=== PATIENT | female | born 1965 | race Caucasian/White ===

== ENCOUNTER 2017-08-30 14:22 | Emergency (ER) | payer OTHER ==
[2017-08-30 14:25] VITALS: BP 158/99
--- NOTE | 2017-08-30 15:00 | PHYS DOC ---
Adult General Chief Complaint Chief Complaint: PAIN ON URINATION HPI HPI Patient is a 52-year-old female who presents with UTI symptoms, sent from the [facility]. The patient was seen about a week ago with UTI symptoms at the [facility], urinalysis was positive for nitrites and leukocyte Estrace, she was treated with Macrobid. Her symptoms have not improved. Actually she states the burning did improve but the frequency did not. She still has some pressure in her lower abdomen. She denies fever but has been nauseated off and on for 3 weeks. She has some pain in her low back that she had attributed to possible musculoskeletal. Patient has not had chronic UTIs. The urine was not cultured from the [facility]. They did not do a microscopic exam, just a dip. PCP Dr. Barron Review of Systems Review of Systems Constitutional: Denies fever or chills [] GI: Nausea but no vomiting. Also notes that when they pressed on her stomach at [facility], it was tender in the midline lower stomach : As in history of present illness Musculoskeletal: She has had midline low back pain but not in the CVA area Physical Exam Physical Exam Constitutional: Well developed, well nourished, no acute distress, non-toxic appearance. Afebrile, alert, mentating normally. HENT: Normocephalic, atraumatic, bilateral external ears normal, nose normal. [] Eyes: conjunctiva normal, no discharge. [] Neck: Normal range of motion, no stridor. [] Cardiovascular:Heart rate regular rhythm, no murmur [] Lungs & Thorax: Bilateral breath sounds clear to auscultation [] Abdomen: Bowel sounds normal, soft, nondistended, no masses, no pulsatile masses. There is mild tenderness in the bladder area, no bilateral lower quadrant tenderness, no rebound or guarding, the abdomen is benign. Skin: Warm, dry, no erythema, no rash. [] Back: No CVA tenderness, no significant tenderness to palpation Extremities: No tenderness, no cyanosis, no clubbing, ROM intact, no edema. [] Neurologic: Alert and oriented X 3, normal motor function, no focal deficits noted. [] EKG EKG [] Radiology/Procedures Radiology/Procedures [] Course & Med Decision Making Course & Med Decision Making Pertinent Labs and Imaging studies reviewed. (See chart for details) Urinalysis here positive for bacteria and white blood cells. We will treat the patient was Cipro. I explained how urine culture works and ask her to follow-up for the results of that if she is not better in 2 days. See instructions for plan. [] Dragon Disclaimer Dragon Disclaimer This chart was dictated in whole or in part using Voice Recognition software in a busy, high-work load, and often noisy Emergency Department environment. It may contain unintended and wholly unrecognized errors or omissions. Departure Departure: Impression: Primary Impression: UTI (urinary tract infection) Disposition: HOME, SELF-CARE Condition: STABLE Referrals: LENARD BARRON (PCP) Patient Instructions: Urinary Tract Infection, [id number] Additional Instructions: Stop taking Macrobid. Start taking Cipro. It is every 12 hours. If not better by Thursday, ask your doctor's office to check the culture results. If worse, return to emergency. Scripts Ondansetron (ZOFRAN ODT) 8 Mg Tab.rapdis 1 TAB PO Q8HRS for NAUSEA, #20 TAB Prov: HOLLY GARCIA MD 08/30/17 Ciprofloxacin Hcl (CIPRO) 250 Mg Tablet 1 TAB PO BID, #14 TAB Prov: HOLLY GARCIA MD 08/30/17 HOLLY GARCIA MD Aug 30, 2017 15:00
[2017-08-30] MEDS ORDERED: CIPR250T30 PO (15:26)
[2017-08-30 15:30] LABS: COLOR,URINE ORANGE
[2017-08-30] MEDS ORDERED: ONDA8TAB12 PO (15:30)
[2017-08-30 15:31] LABS: BACTERIA,URINE FEW /HPF (0-FEW); CLARITY,URINE CLEAR; RBC,URINE OCC /HPF (0-2); SQUAMOUS EPITHELIAL CELL,UR OCC /LPF; WBC,URINE 20-40 /HPF (0-4)
[2017-08-30 15:32] LABS: AMORPHOUS SEDIMENT,UR PRESENT /HPF
== END 2017-08-30 15:30 | disposition home or self-care (01) ==
LOC: ER 14:22
DX: N39.0 Urinary tract infection, site not specified (principal)
CPT/HCPCS: 81001; 87086; 99284

== ENCOUNTER 2017-10-04 12:02 | Emergency (ER) | payer OTHER ==
[~2017-10-04 12:02] MED LIST: CIPR250T30 PO; ONDA8TAB12 PO
--- NOTE | 2017-10-04 12:50 | PHYS DOC ---
General Chief Complaint: MECHANICAL FALL Stated Complaint: FALL - OCC LAST NIGHT Time Seen by MD: 12:41 Source: patient Exam Limitations: no limitations Problems: History of Present Illness Initial Comments Patient is a 52-year-old female who comes in the ED complaining of fall injury. Patient states last night she was breaking up a fight between her 2 small dogs. She says she lost her balance and fell landing on her right hip/low back. She did not feel any pops or clicks she did not hit her head denies headache neck pain or loss of consciousness. She says she felt uninjured and jumped right up and kept working with her dogs and did not notice any discomfort until several hours later when she was laying in bed. She says she noticed right sided low back pain and right buttock pain described initially as muscle stiffness and progressed to sharp and crampy, no leg weakness no saddle anesthesia and no bowel or bladder symptoms. Symptoms are worse today with no new neurologic symptoms. The affected muscles felt tight however the patient is ambulatory she denies any new or progressive lower extremity symptoms. The muscle pain and stiffness has increased in moderate to severe with movement better with rest. After thorough discussion of her fall and resultant symptoms patient is in agreement that imaging would likely be of little benefit as she did not have any discomfort for multiple hours until after the injury. She suffered a bony bruise or fracture or an acute muscle or tendon tear symptom onset would've been much sooner. Timing/Duration: 24 hours Severity: moderate Modifying Factors: improves with cold therapy, worse with movement, improves with rest Associated Symptoms: other Allergies: Coded Allergies: No Known Drug Allergies (Unverified , 08/30/17) Past Medical History Medical History: no pertinent history Surgical History: noncontributory (ankle) Social History Smoker: cigarettes Alcohol: none Drugs: none Review of Systems Constitutional: denies chills, denies fever Respiratory: denies cough, denies shortness of breath Cardiovascular: denies chest pain, denies palpitations Gastrointestinal: denies nausea, denies vomiting Genitourinary: denies dysuria, denies frequency, denies hematuria Musculoskeletal: see HPI Psychiatric/Neurological: see HPI Hematologic/Lymphatic: denies blood clots, denies easy bleeding, denies easy bruising Physical Exam General Appearance: WD/WN, moderate distress Ear, Nose, Throat: normal ENT inspection Neck: non-tender, supple Respiratory: chest non-tender, normal breath sounds, no respiratory distress Gastrointestinal: non tender, soft Back: no CVA tenderness, no vertebral tenderness, other (right-sided lumbar paraspinal hypertonicity and stiffness no actual tenderness no swelling or ecchymosis no midline or bony pain) Extremities: no calf tenderness, pelvis stable, other (tenderness at the right gluteal muscle just inferior to the iliac crest no swelling or ecchymosis no palpable bony or soft tissue deformity) Neurologic/Psychiatric: teleradiologist II-XII nml as tested, no motor/sensory deficits ( DTRs/strength/sensory equal and intact bilateral lower extremities, negative straight leg raise bilaterally), alert, normal mood/affect, oriented x 3 Skin: normal color, warm/dry Orders, Labs, Meds I discussed activity modification, icing and heat, [id number] prescription medications. Discussed signs and symptoms to monitor for as well as indications for urgent return to the department. Patient's questions were answered to her satisfaction and she expressed agreement and understanding with treatment plan. She understands in her best interest to stop smoking and she was advised to do so. Departure Time of Disposition: 12:49 Disposition: 01 HOME, SELF-CARE Diagnosis: fall, lumbar strain Condition: GOOD Patient Instructions: Fall Prevention and Home Safety, [id number], Low Back Strain with Rehab-Sports[facility] Additional Instructions: Keep activity to "pain free." [id number] ibuprofen for baseline discomfort. Prescription: Cyclobenzaprine, [place] 5 mg #15 Stop smoking seek medical assistance if necessary. Follow-up with your doctor in 3-5 days if not better. Return to the ED with new or changing symptoms. ASHKAN BLANTON DO Oct 04, 2017 12:50
[2017-10-04] MEDS ORDERED: CYCL-331 PO (12:52)
[2017-10-04] MEDS ORDERED: HYDR-971 PO (12:52)
== END 2017-10-04 13:05 | disposition home or self-care (01) ==
LOC: ER 12:02
DX: S39.012A Strain of muscle, fascia and tendon of lower back, initial encounter (principal); F17.210 Nicotine dependence, cigarettes, uncomplicated; W19.XXXA Unspecified fall, initial encounter; Y93.89 Activity, other specified; Y92.89 Other specified places as the place of occurrence of the external cause; Y99.8 Other external cause status
CPT/HCPCS: 99283

== ENCOUNTER 2017-10-25 12:20 | Emergency (ER) | payer OTHER ==
[~2017-10-25] VITALS: Ht 167.6 cm; Wt 83.9 kg
[~2017-10-25 12:20] MED LIST changes: +CYCL-331 PO; +HYDR-971 PO
[2017-10-25] MEDS ORDERED: CYCL-331 PO (13:09)
[2017-10-25] MEDS ORDERED: BUDE0.5A3 NEB (13:09)
[2017-10-25] MEDS ORDERED: IPRA15SP NS (13:09)
[2017-10-25 13:10] VITALS: BP 153/94
--- NOTE | 2017-10-25 13:10 | PHYS DOC ---
Past History Past Medical History: COPD Past Surgical History: No Surgical History Alcohol Use: None Drug Use: None Adult General Chief Complaint Chief Complaint: BACK PAIN OR INJURY [facility] HPI Patient is a age [age] year old F who presents with back pain as well as nasal congestion and cough. With respect to her back pain, she has had symptoms over the past 2-3 weeks. She feels that her symptoms are associated with activity and worse with palpation. Her symptoms are improved with rest. With respect to her cough and nasal congestion, she has had these symptoms in the past 2-3 days. She has a history of bronchitis and feels that this is similar. She does use inhalers as needed for COPD. She has no other associated symptoms for either condition no other exacerbating or alleviating factors other than the ones that are listed. Review of Systems Review of Systems Constitutional: Denies fever or chills [] Eyes: Denies change in visual acuity, redness, or eye pain [] HENT: Negative except history of present illness Respiratory: Denies cough or shortness of breath [] Cardiovascular: No additional information not addressed in HPI [] GI: Denies abdominal pain, nausea, vomiting, bloody stools or diarrhea [] : Denies dysuria or hematuria [] Musculoskeletal: Negative except history of present illness Integument: Denies rash or skin lesions [] Neurologic: Denies headache, focal weakness or sensory changes [] Endocrine: Denies polyuria or polydipsia [] All other systems were reviewed and found to be within normal limits, except as documented in this note. Family History Family History No pertinent family medical history reported Current Medications Current Medications Current medications reviewed Allergies Allergies Allergies Coded Allergies Type Severity Reaction Last Updated Verified No Known Drug Allergies 08/30/17 No Physical Exam Physical Exam Constitutional: Well developed, well nourished, no acute distress, non-toxic appearance. [] HENT: Normocephalic, atraumatic, bilateral external ears normal, oropharynx moist, no oral exudates, mild nasal mucosa edema and erythema bilaterally Eyes: PERRLA, EOMI, conjunctiva normal, no discharge. [] Neck: Normal range of motion, no tenderness, supple, no stridor. [] Cardiovascular:Heart rate regular rhythm, no murmur [] Lungs & Thorax: Bilateral breath sounds clear to auscultation [] Abdomen: Bowel sounds normal, soft, no tenderness, no masses, no pulsatile masses. [] Skin: Warm, dry, no erythema, no rash. [] Back: Paraspinal muscle spasm noted Extremities: No tenderness, no cyanosis, no clubbing, ROM intact, no edema. [] Neurologic: Alert and oriented X 3, normal motor function, normal sensory function, no focal deficits noted. [] Psychologic: Affect normal, judgement normal, mood normal. [] Current Patient Data Vital Signs Vital Signs Date Time Temp Pulse Resp B/P (MAP) Pulse Ox O2 Delivery O2 Flow Rate FiO2 10/25/17 12:20 97.9 96 18 99 Room Air EKG EKG [] Radiology/Procedures Radiology/Procedures [] Course & Med Decision Making Course & Med Decision Making Pertinent Labs and Imaging studies reviewed. (See chart for details) Labs and imaging were declined Dragon Disclaimer Dragon Disclaimer This electronic medical record was generated, in whole or in part, using a voice recognition dictation system. Departure Departure: Impression: Primary Impression: Upper respiratory infection Additional Impressions: Muscle spasm Bronchitis Disposition: 01 HOME, SELF-CARE Condition: STABLE Referrals: LENARD BUTLER (PCP) Patient Instructions: Acute Bronchitis, Piriformis Syndrome, Upper Respiratory Infection, Adult Additional Instructions: Harriett was seen in the emergency department for back pain, is a congestion and cough. No emergency medical condition was found on history or physical exam. She was found to have symptoms consistent with 2 separate diagnoses. Her back pain was most consistent with a muscle spasm related to piriformis syndrome. She was also found to have symptoms consistent with a viral upper respiratory infection and bronchitis. She was given Flexeril for her muscle spasm. She was also given nasal spray and inhaled steroid for her respiratory symptoms. She was advised to return to the emergency room if she develops new or worsening symptoms. She was advised to follow-up with physical therapy as needed to manage her muscle spasm. She was advised follow-up with her primary care doctor as needed for further management. Scripts Budesonide (PULMICORT) 0.5 Mg/2 Ml Ampul.neb 1 VIAL NEB BID for 7 Days, #60 VIAL 3 Refills Prov: KAMI GARCIA MD 10/25/17 Ipratropium [place] (IPRATROPIUM BROMIDE) 15 Ml [place] 15 ML NS TID for 7 Days, SPRAY Prov: KAMI GARCIA MD 10/25/17 Cyclobenzaprine Hcl (CYCLOBENZAPRINE HCL) 10 Mg Tablet 1 TAB PO TID Y for PAIN for 3 Days, #9 TAB Prov: KAMI GARCIA MD 10/25/17 Problem Qualifiers Primary Impression: Upper respiratory infection URI type: unspecified viral URI Qualified Codes: J06.9 - Acute upper respiratory infection, unspecified; B97.89 - Other viral agents as the cause of diseases classified elsewhere KAMI GARCIA MD Oct 25, 2017 13:10
== END 2017-10-25 13:10 | disposition home or self-care (01) ==
LOC: ER 12:20
DX: J06.9 Acute upper respiratory infection, unspecified (principal); M62.830 Muscle spasm of back; J40 Bronchitis, not specified as acute or chronic; B97.89 Other viral agents as the cause of diseases classified elsewhere; J44.9 Chronic obstructive pulmonary disease, unspecified
CPT/HCPCS: 99283

== ENCOUNTER 2018-02-14 12:19 | Emergency (ER) | payer OTHER ==
[~2018-02-14 12:19] MED LIST changes: +BUDE0.5A3 NEB; +IPRA15SP NS
[2018-02-14 12:23] VITALS: BP 155/85
--- NOTE | 2018-02-14 12:50 | PHYS DOC ---
Past History Past Medical History: No Pertinent History Past Surgical History: No Surgical History Smoking: Cigarettes Alcohol Use: Occasionally Drug Use: None Adult General Chief Complaint Chief Complaint: BACK PAIN OR INJURY HPI HPI 53-year-old female patient states she was helping her to get out of the wheelchair and had a fall besides her and twisted her back and complaining of right lower back pain for the last 5 days as a constant pain that getting worse with movement. She said the pain radiated to lower abdomen and denies focal neurodeficit and urine and bowel incontinence and fever and chills. Patient states she uses alternate Tylenol and ibuprofen and apply heat without improvement of her condition. Patient rated her pain 9/10. Review of Systems Review of Systems Constitutional: Denies fever or chills [] Eyes: Denies change in visual acuity, redness, or eye pain [] HENT: Denies nasal congestion or sore throat [] Respiratory: Denies cough or shortness of breath [] Cardiovascular: No additional information not addressed in HPI [] GI: Denies abdominal pain, nausea, vomiting, bloody stools or diarrhea [] : Denies dysuria or hematuria [] Musculoskeletal: Reports back pain ] Integument: Denies rash or skin lesions [] Neurologic: Denies headache, focal weakness or sensory changes [] Endocrine: Denies polyuria or polydipsia [] All other systems were reviewed and found to be within normal limits, except as documented in this note. Allergies Allergies Allergies Coded Allergies Type Severity Reaction Last Updated Verified No Known Drug Allergies 08/30/17 No Physical Exam Physical Exam Constitutional: Well developed, well nourished, mild distress, non-toxic appearance. [] HENT: Normocephalic, atraumatic Eyes: PERRLA, EOMI, conjunctiva normal, no discharge. [] Neck: Normal range of motion, no tenderness, supple, no stridor. [] Cardiovascular:Heart rate regular rhythm, no murmur [] Lungs & Thorax: Bilateral breath sounds clear to auscultation [] Abdomen: Bowel sounds normal, soft, no tenderness, no masses, no pulsatile masses. [] Skin: Warm, dry, no erythema, no rash. [] Back: No deformity or midline tenderness, right paraspinal muscle spasm, limited range of motion secondary to pain Extremities: No tenderness, no cyanosis, no clubbing, ROM intact, no edema. [] Neurologic: Alert and oriented X 3, normal motor function, normal sensory function, no focal deficits noted. [] Psychologic: Affect normal, judgement normal, mood normal. [] EKG EKG [] Radiology/Procedures Radiology/Procedures [] [address] [address] IMAGING REPORT Signed PATIENT: WILBUR ARAMBULA ACCOUNT: [id number] : 1965 LOCATION: ER AGE: 53 SEX: F EXAM STATUS: REG ER ORD. PHYSICIAN: VIKTORIA ROCHA MD REASON: fall PROCEDURE: LUMBAR SPINE 2-3V Three-view lumbar spine radiographs 02/14/2018 Clinical history: Low back pain for 2 days post fall. AP and 2 lateral digital radiographs of the lumbar spine were obtained. Very mild S-shaped curvature of the thoracolumbar spine is seen. No fracture or subluxation is noted. Degenerative changes are seen involving the lower thoracic and throughout the lumbar spine consisting of varying degrees disc space narrowing, vertebral endplate sclerosis and mild to moderate anterior vertebral body osteophyte formation. Degenerative changes are seen involving the facet joints of the mid and lower lumbar spine. Atherosclerotic calcification is seen in the region of the abdominal aorta. Calcifications are seen within the pelvis consistent with phleboliths. Impression: Degenerative changes are seen involving the lower thoracic and lumbar spine as outlined above. No fracture or subluxation is seen. DICTATED AND SIGNED BY: DIDI SERRANO MD DATE: 02/14/18 2163 CC: LENARD BUTLER MD; VIKTORIA ROCHA MD ~ Course & Med Decision Making Course & Med Decision Making Pertinent Imaging studies reviewed. (See chart for details) Evaluation of pain patient in ER showed 53-year-old female patient with a fall 5 days ago and pain in her back. Patient had muscle spasm and lumbar x-ray showed degenerative changes without acute fracture. Treated with Toradol and plan to discharge patient home with diagnose of lumbosacral myofascial strain and prescription of Flexeril and Ultram. Dragon Disclaimer Dragon Disclaimer This electronic medical record was generated, in whole or in part, using a voice recognition dictation system. Departure Departure: Impression: Primary Impression: Acute lumbosacral myofascial strain Additional Impressions: Fall at home Tobacco abuse Tobacco abuse counseling Disposition: HOME, SELF-CARE (At 1326) Condition: IMPROVED Referrals: LENARD BUTLER MD (PCP) Patient Instructions: Lumbosacral Strain, Smoking Cessation Additional Instructions: Apply ice on the affected area Follow-up with your primary care physician in 3-5 days Return to ER if not getting better Scripts Tramadol Hcl (ULTRAM) 50 Mg Tablet 50 MG PO PRN Q6HRS Y for PAIN, #14 TAB Prov: VIKTORIA ROCHA MD 02/14/18 Cyclobenzaprine Hcl (CYCLOBENZAPRINE HCL) 10 Mg Tablet 1 TAB PO TID, #30 TAB Prov: VIKTORIA ROCHA MD 02/14/18 Problem Qualifiers VIKTORIA ROCHA MD Feb 14, 2018 12:50
[2018-02-14] MEDS ORDERED: KETOROLAC 60 MG/2 ML VIAL. IM ONE (13:00)
--- NOTE | 2018-02-14 13:10 | RAD ---
Three-view lumbar spine radiographs 02/14/2018 Clinical history: Low back pain for 2 days post fall. AP and 2 lateral digital radiographs of the lumbar spine were obtained. Very mild S-shaped curvature of the thoracolumbar spine is seen. No fracture or subluxation is noted. Degenerative changes are seen involving the lower thoracic and throughout the lumbar spine consisting of varying degrees disc space narrowing, vertebral endplate sclerosis and mild to moderate anterior vertebral body osteophyte formation. Degenerative changes are seen involving the facet joints of the mid and lower lumbar spine. Atherosclerotic calcification is seen in the region of the abdominal aorta. Calcifications are seen within the pelvis consistent with phleboliths. Impression: Degenerative changes are seen involving the lower thoracic and lumbar spine as outlined above. No fracture or subluxation is seen.
[2018-02-14] MEDS ORDERED: CYCL-331 PO (13:28)
[2018-02-14] MEDS ORDERED: TRAM-48 PO (13:28)
== END 2018-02-14 13:38 | disposition home or self-care (01) ==
LOC: ER 12:19
DX: S39.012A Strain of muscle, fascia and tendon of lower back, initial encounter (principal); F17.210 Nicotine dependence, cigarettes, uncomplicated; Z71.6 Tobacco abuse counseling; W19.XXXA Unspecified fall, initial encounter; Y93.89 Activity, other specified; Y99.8 Other external cause status; Y92.098 Other place in other non-institutional residence as the place of occurrence of the external cause
CPT/HCPCS: 72100; 96372; 99284; J1885